=== PATIENT | female | born 1980 | race Caucasian/White ===

== ENCOUNTER 2024-06-29 04:29 | Emergency (ER) | payer BC, SELFPAY ==
[2024-06-29 04:31] VITALS: BP 170/105
--- NOTE | 2024-06-29 07:14 | ED.GENMED ---
History of Present Illness
General
Chief Complaint: Throat Problem
Source: patient
Exam Limitations: none
Time Seen by Provider: 06/29/24 07:13
Nursing documentation reviewed up to this point in time: agreed with
History of Present Illness
History of Present Illness:
Patient is a 43-year-old female who reports she woke up at 4 AM with a sore throat. She took 2 Advil and felt like they got stuck in her throat. Patient now feels better and reports throat feels only mildly irritated. She is tolerating her
secretions well. She denies any difficulty swallowing water. She denies any fever or chills. She has no other symptoms at this time.
She had no difficulty breathing and currently denies any difficulty breathing.
Past History
Past History
ED Past Medical History: Other (Congenital clotting factor deficiency)
ED Past Surgical History: None
Social History
Tobacco: Non-smoker
Alcohol: None
Personal:
Living: with family
Family History
Family History: Negative Diabetes, Hypertension, Early CAD, Asthma or Cancer
Review of Systems
Review of Systems
Allergies reviewed?: Yes
All Other Systems: ROS reviewed and negative except as documented in HPI and ROS
Constitutional: Reports no symptoms; Denies fever
EENT: Reports other (Sore throat/foreign body sensation/irritation)
Respiratory: Reports no symptoms; Denies trouble breathing
ABD/GI: Reports no symptoms
Musculoskeletal: Reports no symptoms
Skin: Reports no symptoms
Neurological: Reports no symptoms
Psychiatric: Reports no symptoms
Phy Exam
General Physical Exam
General Presentation: no apparent distress
General age: appears stated age
General Skin: warm and dry
General Habitus: normal
General Mental: alert
General Hydration: appears well hydrated
ENT Exam
ENT Exam: neck supple and other (Throat is mildly red ;uvula midline no exudate on tonsils no drooling; tolerating secretions well)
Eye Exam
Eye Exam: PERRL and EOMI
Cardiovascular Exam
Cardiovascular Exam: regular rate/rhythm, no murmur and normal peripheral pulses
Pulmonary Exam
Pulmonary Exam: lungs clear and no respiratory distress
Neurological Exam
Neurological Exam: alert and oriented x3
Musculoskeletal Exam
Musculoskeletal Exam: full ROM
Skin Exam
Skin Exam: normal color and warm/dry
Psychiatric Exam
Psychiatric Exam: normal mood/affect
Course
Orders/Labs/Results
Orders:
Orders
06/29/24 05:01
Rapid Strep Group A Urgent
KELVIN Source: Throat/Pharynx
Specimen Description:
Date Specimen was Collected: 06/29/24
Time Specimen was Collected: 04:35
06/29/24 07:21
Vital Signs- Treatment ONCE
Frequency: Once
Vital Signs
Initial and Last Documented VS:
Initial Vital Signs
Temp Pulse Resp BP Pulse Ox
97.6 F 112 18 170/105 100
06/29/24 04:31 06/29/24 04:31 06/29/24 04:31 06/29/24 04:31 06/29/24 04:31
Last Documented Vital Signs
Temp Pulse Resp BP Pulse Ox
97.6 F 98 16 152/111 99
06/29/24 04:31 06/29/24 07:25 06/29/24 07:25 06/29/24 07:25 06/29/24 07:25
MDM/Problems Addressed
Differential Diagnosis Includes:
Not limited to esophageal foreign body, esophageal abrasion
MDM/Problems Addressed:
1924:As documented patient is a 43-year-old female who woke up with a sore throat at 4 AM took 2 Advil and felt that they got stuck in her throat. She however is feeling much better. She arrived around 4:29 AM, and is now feeling much better. She
feels a lateral irritated in her throat. She denies any difficulty swallowing at this time she denies any difficulty breathing. She is tolerating secretions well. She denies any shortness of breath. On exam her throat is mildly red uvula midline
no drooling. Rapid strep negative. She is afebrile. She does admit that she was very anxious when she arrived and she was tachycardic and hypertensive however heart rate has improved. She is mildly hypertensive we will have patient follow-up
with her family doctor for this. It is likely that patient may have scraped her esophagus however unlikely foreign body. I did offer Magic mouthwash however she does not feel that she needs anything at this time.
*Critical Care Note
Total Time (30-74mins, 75-104mins- exclusive of procedures): Not Applicable
ED Attending Note
-
Portions of this chart may have been created with voice recognition software.� Occasional wrong word or��sound alike� substitutions may have occurred due to the inherent limitations of voice recognition software.
Discharge Plan
Departure
Patient Disposition: Home (Routine Discharge)
Date of Disposition: 06/29/24
Time of Disposition: 07:26
Patient with high blood pressure during this ER visit?: Yes
Covid-19: Not Applicable
Discharge Problem:
Throat irritation
Instructions: Sore Throat, Adult (DC), BLOOD PRESSURE
Referrals:
Darnell Espinal DO [Family Provider] -
Activity Restrictions/Additional Instructions:
It is likely as discussed that you may have scraped your esophagus .
Soothing foods as tolerated stable hydrated. In addition your rapid strep was negative .
it is likely you have a viral infection however if symptoms continue and you r develop fever have this rechecked by your family doctor. Also your blood pressure was mildly elevated here in the ER please have this rechecked by your family doctor
return if any worsening of symptoms.
Interventions
Interventions:
*Risk Screen - Suicide Last Done: 06/29/24 04:31
*General Assessment Last Done: 06/29/24 06:05
*Neglect/Abuse Screening Last Done: 06/29/24 04:31
ED- Fall Risk Assessment Last Done: 06/29/24 06:52
*ED COVID-19 Vaccine History Last Done: 06/29/24 06:05
ED-EENT Assessment Last Done: 06/29/24 06:40
ED- Pulmonary Assessment Last Done: 06/29/24 06:40
Discharge Date and Time
Print Language: [place]
[2024-06-29 07:25] VITALS: BP 152/111
== END 2024-06-29 07:31 | disposition home or self-care (01) ==
LOC: EMR 04:29
PROVIDERS: EMERGENCY PHYSICIAN Emergency Medicine; FAMILY PHYSICIAN Family Medicine
DX: R07.0 Pain in throat (principal); Z82.49 Family history of ischemic heart disease and other diseases of the circulatory system
CPT/HCPCS: 99282; 87070; 87880